=== PATIENT | male | born 1990 | race Caucasian/White ===

== ENCOUNTER 2017-05-26 23:22 | Emergency (ER) | payer BC ==
[2017-05-26] MEDS ORDERED: 0.9 % SODIUM CHLORIDE 1000ML 1,000 ML IV SCH (23:45)
[2017-05-26] MEDS ORDERED: MORPHINE SULFATE 5 MG/ML PFS IVP ONE (23:54)
[2017-05-26] MEDS ORDERED: ONDANSETRON HCL IV 4 MG/2 ML VIAL IVP ONE (23:54)
--- NOTE | 2017-05-27 | Emergency Department Record ---
History of Present Illness - General Chief complaint: Abscess Stated complaint: ABSCESS Time Seen by Provider: 05/26/17 23:49 Source: Patient Mode of Arrival: Ambulatory Limitations: No limitations - History of Present Illness Initial comments: 26 yo male presents to ED with a CC swelling and pain to the right buttock x 1 day. Patient reports swelling, redness, and drainage from the area. Patient reports history of cutaneous abscesses previously, however previous episodes have not been as large. Patient denies health problems at his baseline. MD complaint: Abscess/boil Onset/Timin -: Days(s) Patient Tetanus UTD (within 5 yrs): Yes Location: Buttocks Severity: Moderate Severity scale (1-10): 6 Quality: Aching Consistency: Constant Improves with: None Worsens with: None Context: None - Related Data Home Medications Medication Instructions Recorded Confirmed Last Taken Venlafaxine HCl [Venlafaxine HCl 37.5 mg PO BID 05/26/17 05/26/17 Unknown ER] Previous Rx's Medication Instructions Recorded Clindamycin HCl 300 mg PO Q6H #40 capsule 05/27/17 Hydrocodone/Acetaminophen [[place] 1 each PO Q6H PRN #15 tablet 05/27/17 5-325 Tablet] Allergies Allergy/AdvReac Type Severity Reaction Status Date / Time No Known Drug Allergies Allergy Verified 05/26/17 23:39 Travel Screening - Travel/Exposure Within Last 30 Days Have you traveled within the last 30 days?: No Review of Systems Constitutional: Denies: Chills, Malaise, Night sweats Eyes: Denies: Eye discharge, Eye pain ENT: Denies: Congestion, Ear pain, Epistaxis Respiratory: Denies: Cough, Dyspnea Cardiovascular: Denies: Chest pain, Dyspnea on exertion Endocrine: Denies: Fatigue, Heat or cold intolerance Gastrointestinal: Denies: Abdominal pain, Nausea, Vomiting Genitourinary: Denies: Incontinence, Retention Musculoskeletal: Denies: Arthralgia, Back pain, Gout, Joint swelling Skin: Reports: Change in color, Other (Swelling, pain, and drainage from the right buttock). Denies: Bruising, Rash Neurological: Denies: Abnormal gait, Confusion, Headache, Seizure Psychiatric: Denies: Anxiety Hematological/Lymphatic: Denies: Anemia, Blood Clots Past Medical History - SOCIAL HISTORY Smoking Status: Never smoker Alcohol Use: None Drug Use: None - RESPIRATORY Hx Respiratory Disorders: No - CARDIOVASCULAR Hx Cardio Disorders: No - NEURO Hx Neuro Disorders: No - GI Hx GI Disorders: No - Hx Genitourinary Disorders: No - ENDOCRINE Hx Endocrine Disorders: No - MUSCULOSKELETAL Hx Musculoskeletal Disorders: No - PSYCH Hx Psych Problems: No - HEMATOLOGY/ONCOLOGY Hx Hematology/Oncology Disorders: No Family Medical History Any Significant Family History?: No Physical Exam - General General Appearance: Alert, Oriented x3, Cooperative, Mild distress Limitations: No limitations - Head Head exam: Atraumatic, Normocephalic, Normal inspection Head exam detail: negative: Abrasion, Contusion, Doherty's sign, General tenderness, Hematoma, Laceration - Eye Eye exam: Normal appearance. negative: Conjunctival injection, Periorbital swelling, Periorbital tenderness, Scleral icterus - ENT Ear exam: negative: Auricular hematoma, Auricular trauma Nasal Exam: negative: Active bleeding, Discharge, Dried blood, Foreign body Mouth exam: negative: Drooling, Laceration, Muffled voice, Tongue elevation - Neck Neck exam: Normal inspection. negative: Meningismus, Tenderness - Respiratory Respiratory exam: Normal lung sounds bilaterally. negative: Rales, Respiratory distress, Rhonchi, Stridor - Cardiovascular Cardiovascular Exam: Regular rate, Normal rhythm, Normal heart sounds - GI/Abdominal GI/Abdominal exam: Soft. negative: Rebound, Rigid, Tenderness - Rectal Rectal exam: Deferred - exam: Deferred - Extremities Extremities exam: Normal inspection. negative: Calf tenderness, Pedal edema, Tenderness - Back Back exam: Reports: Normal inspection. Denies: CVA tenderness (R), CVA tenderness (L) - Neurological Neurological exam: Alert, Normal gait, Oriented X3 - Psychiatric Psychiatric exam: Normal affect, Normal mood - Skin Skin exam: Erythema. negative: Abrasion Type of lesion: Abscess (approximately 9 cm in diameter area of erythema and induration is present to the right buttock). negative: abrasion Course Vital Signs 05/26/17 23:37 Temperature 99.4 F Pulse Rate 102 H Respiratory 18 Rate Blood Pressure 150/87 Pulse Ox 98 - Reevaluation(s) Reevaluation #1: 05/27/17 01:26 Labs reviewed and are grossly unremarkable for an acute process. CT Pelvis: Skin thickening c/w cellulitis, no fluid collection or drainable abscess present. Clindamycin is almost completed infusing, and the patient appears stable for discharge on Clindamycin and [place] with warm soaks twice daily and instructions to return to ED for any worsening of his symptoms. Patient agrees with the plan of care as discussed. Medical Decision Making - Lab Data Result diagrams: 05/26/17 00:37 05/26/17 00:37 Disposition Disposition: Discharge Clinical Impression: Cellulitis of buttock, right Disposition: Home, Self-Care Condition: (2) Stable Instructions: Cellulitis (ED) Additional Instructions: Return to ED if your symptoms worsen or if you have any concerns. Clindamycin and [place] as directed. Follow-up with your family doctor in 1-3 days as directed. Prescriptions: Clindamycin HCl 300 mg PO Q6H #40 capsule Hydrocodone/Acetaminophen [[place] 5-325 Tablet] 1 each PO Q6H PRN #15 tablet PRN Reason: Pain - Moderate (5-7) Forms: Patient Portal Access Time of Disposition: 01:33 Quality - Quality Measures Quality Measures: N/A - Blood Pressure Screening Does Patient Have Any of the Following: No Blood Pressure Classification: Pre-Hypertensive BP Reading Systolic Measurement: 144 Diastolic Measurement: 80 Screening for High Blood Pressure: < Pre-Hypertensive BP, F/U Documented > [ G8950] Pre-Hypertensive Follow-up Interventions: Referral to alternative/primary care provider.
[2017-05-27 00:55] LABS: BASO % 0.2 % (0-6); EOS % 0.7 % (0-6); GRAN % 75.3 % (47-80); HEMATOCRIT 40.3 % (42.0-52.0); HEMOGLOBIN 13.9 gm/dl (14.0-18.0); LYMPH % 14.9 % (16-45); MEAN CELL VOLUME 84.3 fl (81-97); MEAN CORPUSCULAR HGB CONC 34.5 g/dl (32-36); MEAN PLATELET VOLUME 11.2 fl (7.4-10.4); MONO % 8.9 % (0-9); PLATELET COUNT 242 K/uL (130-400); RED BLOOD COUNT 4.78 M/uL (4.40-5.70); RED CELL DISTRIBUTION WIDTH 12.9 % (11.5-14.5); WHITE BLOOD COUNT W/O DIFF 10.4 K/uL (4.2-12.2)
[2017-05-27] MEDS ORDERED: CLINDAMYCIN 600MG/50ML PREMIX 600 MG/50 ML BAG IVPB ONE (01:03)
[2017-05-27 01:06] LABS: ALB/GLOB RATIO 1.4 (1.1-1.8); ALBUMIN 4.4 g/dL (4.0-5.0); ALKALINE PHOSPHATASE 63 U/L (40-129); ALT/SGPT 25 U/L (<41); AST/SGOT 18 U/L (10.0-50.0); BLOOD UREA NITROGEN 14 mg/dL (6-20); CREATININE 1.2 mg/dL (0.7-1.2); EST GLOMERULAR FILTRATION RATE > 60 mL/min; GLUCOSE,RANDOM 81 mg/dL (74-109); TOTAL PROTEIN 7.5 g/dL (6.6-8.7)
[2017-05-27] MEDS ORDERED: HYDROCODONE/APAP 5/325MG TABLET PO ONE (01:37)
--- NOTE | 2017-05-28 10:04 | CT SCAN REPORT ---
EXAM: CT SCAN OF THE PELVIS WITH CONTRAST HISTORY: RIGHT BUTTOCK INFECTION/ABSCESS. TECHNIQUE: Standard CT imaging of the pelvis was performed with contrast. 80 ml of Omnipaque 300 were administered. Comparison: None. FINDINGS: There is skin thickening and subcutaneous edema within the right gluteal region. This is confined to the skin and subcutaneous fat. There is no defined fluid collection or abscess. There is no soft tissue air. The appearance is consistent with cellulitis. The visualized large and small bowel loops are normal. The appendix is unremarkable. The urinary bladder and prostate gland are normal. There are no acute osseous abnormalities. IMPRESSION: LOCALIZED SKIN THICKENING AND SUBCUTANEOUS EDEMA WITHIN THE RIGHT GLUTEAL REGION CONSISTENT WITH CELLULITIS. THERE IS NO DEFINED ABSCESS OR SOFT TISSUE AIR. JOB NUMBER: [id number] MTDD
== END 2017-05-27 02:08 | disposition home or self-care (01) ==
LOC: ER 23:22
DX: L03.317 Cellulitis of buttock (principal)
CPT/HCPCS: 99284 ×2; 96374; 96375; 85025; 80053; 72193; Q9967; J2405; J2270; J7030

== ENCOUNTER 2017-05-28 05:54 | Observation (INO) | payer BC ==
[2017-05-28] MEDS ORDERED: SODIUM CHLORIDE 0.9% 500 ML IV ONE ×2 (06:21→07:02)
[2017-05-28] MEDS ORDERED: CLINDAMYCIN 600MG/50ML PREMIX 600 MG/50 ML BAG IVPB ONE (06:22)
[2017-05-28] MEDS ORDERED: CEFTRIAXONE SODIUM 1 GM in 0.9 % SODIUM CHLORIDE 100ML 100 ML IVPB ONE (06:28)
--- NOTE | 2017-05-28 06:28 | Emergency Department Record ---
History of Present Illness - General Chief complaint: Abscess Stated complaint: ABSCESS Time Seen by Provider: 05/28/17 06:12 Source: Patient Mode of Arrival: Ambulatory Limitations: No limitations - History of Present Illness Initial comments: The patient was diagnosed with R buttock cellulitis about 30 hours ago here in the ER. He had a CT performed that did not demonstrate any abscess or drainable fluid. Now this AM the area became suddenly more painful and then started draining. Since the pain has improved. The patient is mildly nauseated and has had a low grade fever. He denies any AP, CP, or SOB. MD complaint: Abscess/boil Onset/Timin -: Hour(s) Hx Tetanus Toxoid Vaccination: Yes Year of Tetanus Vaccination: 2012 Patient Tetanus UTD (within 5 yrs): No Location: Buttocks Severity: Moderate Quality: Sharp Consistency: Intermittent Improves with: Rest Worsens with: Movement Context: Other Associated symptoms: Denies other symptoms Treatments Prior to Arrival: Attempted to drain pus at home, Bandages, Antibiotic, Other Treatment Prior to Arrival Comment:: [place] - Related Data Previous Rx's Medication Instructions Recorded Clindamycin HCl 300 mg PO Q6H #40 capsule 05/27/17 Hydrocodone/Acetaminophen [[place] 1 each PO Q6H PRN #15 tablet 05/27/17 5-325 Tablet] Allergies Allergy/AdvReac Type Severity Reaction Status Date / Time No Known Drug Allergies Allergy Verified 05/26/17 23:39 Travel Screening - Travel/Exposure Within Last 30 Days Have you traveled within the last 30 days?: No - Travel Symptoms Symptom Screening: None Review of Systems Constitutional: Reports: Chills, Fever, Malaise Eyes: Denies: Eye discharge ENT: Denies: Congestion Respiratory: Denies: Cough Past Medical History - SOCIAL HISTORY Smoking Status: Never smoker Alcohol Use: None Drug Use: None - RESPIRATORY Hx Respiratory Disorders: No - CARDIOVASCULAR Hx Cardio Disorders: No - NEURO Hx Neuro Disorders: No - GI Hx GI Disorders: No - Hx Genitourinary Disorders: No - ENDOCRINE Hx Endocrine Disorders: No - MUSCULOSKELETAL Hx Musculoskeletal Disorders: No - PSYCH Hx Psych Problems: No - HEMATOLOGY/ONCOLOGY Hx Hematology/Oncology Disorders: No Family Medical History Any Significant Family History?: Yes Hx HTN: Mother, Grandparents Physical Exam - General General Appearance: Alert, Oriented x3, Cooperative, No acute distress - Head Head exam: Atraumatic, Normocephalic, Normal inspection - Eye Eye exam: Normal appearance, PERRL - Neck Neck exam: Normal inspection, Full ROM. negative: Tenderness - Respiratory Respiratory exam: Normal lung sounds bilaterally. negative: Respiratory distress - Cardiovascular Cardiovascular Exam: Regular rate, Normal rhythm, Normal heart sounds - GI/Abdominal GI/Abdominal exam: Soft, Normal bowel sounds. negative: Tenderness - Rectal Rectal exam: Other (The R buttock is erythematous and very indurated. There is a draining lesion in the center. The are is very tender and warm.) - Extremities Image of Full Body: 1 - Area of erythema and induration. Course Vital Signs 05/28/17 05:59 Temperature 99.9 F H Pulse Rate [ 107 H Pulse Ox Probe] Respiratory 16 Rate Blood Pressure 127/74 [Left Arm] Pulse Ox 97 - Reevaluation(s) Reevaluation #1: Due to the size of the erythema and induration I do not feel that I can I and D the lesion here in the ER. I did discuss the case with Dr. Camacho and he will consult on the patient this AM and possibly take him to surgery. He would like the patient NPO and would like another CT performed. The patient last had a meal at 10pm last night and did have a small amount of fluid and popcorn at 2am today. The patient also took a dose of Clindamycin about 2 hours ago. 05/28/17 06:32 05/28/17 06:34 Reevaluation #2: The patient's care will be turned over to Dr. Hamm at 7am due to shift change. 05/28/17 06:51 Medical Decision Making - Lab Data Result diagrams: 05/28/17 06:30 05/28/17 06:30 Disposition Forms: Patient Portal Access Quality - Quality Measures Quality Measures: N/A - Blood Pressure Screening View Details: Yes Does Patient Have Any of the Following: No Blood Pressure Classification: Pre-Hypertensive BP Reading Systolic Measurement: 127 Diastolic Measurement: 74 Screening for High Blood Pressure: < Pre-Hypertensive BP, F/U Documented > [ G8950] Pre-Hypertensive Follow-up Interventions: Referral to alternative/primary care provider.
[2017-05-28] MEDS ORDERED: KETOROLAC 30 MG/ML VIAL IVP ONE (06:29)
[2017-05-28 06:38] LABS: BASO % 0.2 % (0-6); EOS % 2.2 % (0-6); GRAN % 70.3 % (47-80); HEMATOCRIT 39.2 % (42.0-52.0); HEMOGLOBIN 13.7 gm/dl (14.0-18.0); LYMPH % 16.9 % (16-45); MEAN CELL VOLUME 84.7 fl (81-97); MEAN CORPUSCULAR HEMOGLOBIN 29.5 pg (27-33); MEAN CORPUSCULAR HGB CONC 34.9 g/dl (32-36); MONO % 10.4 % (0-9); PLATELET COUNT 227 K/uL (130-400); RED BLOOD COUNT 4.63 M/uL (4.40-5.70); RED CELL DISTRIBUTION WIDTH 12.7 % (11.5-14.5)
[2017-05-28 06:50] LABS: BLOOD UREA NITROGEN 16 mg/dL (6-20); CREATININE 1.1 mg/dL (0.7-1.2); EST GLOMERULAR FILTRATION RATE > 60 mL/min; GLUCOSE,RANDOM 103 mg/dL (74-109)
--- NOTE | 2017-05-28 07:37 | Emergency Department Record ---
History of Present Illness - General Chief complaint: Abscess Stated complaint: ABSCESS Time Seen by Provider: 05/28/17 06:12 Source: Patient Mode of Arrival: Ambulatory Limitations: No limitations - History of Present Illness MD complaint: Abscess/boil Onset/Timin -: Hour(s) Hx Tetanus Toxoid Vaccination: Yes Year of Tetanus Vaccination: 2013 Patient Tetanus UTD (within 5 yrs): No Location: Buttocks Severity: Moderate Quality: Sharp Consistency: Intermittent Improves with: Rest Worsens with: Movement Context: Other Associated symptoms: Denies other symptoms Treatments Prior to Arrival: Attempted to drain pus at home, Bandages, Antibiotic, Other Treatment Prior to Arrival Comment:: [place] - Related Data Previous Rx's Medication Instructions Recorded Clindamycin HCl 300 mg PO Q6H #40 capsule 05/27/17 Hydrocodone/Acetaminophen [[place] 1 each PO Q6H PRN #15 tablet 05/27/17 5-325 Tablet] Allergies Allergy/AdvReac Type Severity Reaction Status Date / Time No Known Drug Allergies Allergy Verified 05/26/17 23:39 Travel Screening - Travel/Exposure Within Last 30 Days Have you traveled within the last 30 days?: No - Travel Symptoms Symptom Screening: None Review of Systems Constitutional: Reports: Chills, Fever, Malaise Eyes: Denies: Eye discharge ENT: Denies: Congestion Respiratory: Denies: Cough Past Medical History - SOCIAL HISTORY Smoking Status: Never smoker Alcohol Use: None Drug Use: None - RESPIRATORY Hx Respiratory Disorders: No - CARDIOVASCULAR Hx Cardio Disorders: No - NEURO Hx Neuro Disorders: No - GI Hx GI Disorders: No - Hx Genitourinary Disorders: No - ENDOCRINE Hx Endocrine Disorders: No - MUSCULOSKELETAL Hx Musculoskeletal Disorders: No - PSYCH Hx Psych Problems: No - HEMATOLOGY/ONCOLOGY Hx Hematology/Oncology Disorders: No Family Medical History Any Significant Family History?: Yes Hx HTN: Mother, Grandparents Physical Exam - General Limitations: No limitations Course Vital Signs 05/28/17 05/28/17 05:59 07:26 Temperature 99.9 F H 99.7 F H Pulse Rate [ 107 H 80 Pulse Ox Probe] Respiratory 16 20 Rate Blood Pressure 127/74 109/51 [Left Arm] Pulse Ox 97 99 - Reevaluation(s) Reevaluation #1: The case was signed out at 7am at the bedside with Dr Hardin The patient was examined The CT report from [facility] was reviewed. Progressive cellulitis of the right buttocks noted. Given the drainage and increased size CT was performed, general surgery was consulted and plans exploration in the OR. Jesse Hernandez PAC. for admission to the hospital following I and D in the OR. 05/28/17 07:29 Medical Decision Making - Lab Data Result diagrams: 05/28/17 06:30 05/28/17 06:30 Lab Results 05/28/17 05/28/17 Range/Units 06:30 06:30 WBC 10.0 (4.2-12.2) K/uL RBC 4.63 (4.40-5.70) M/uL Hgb 13.7 L (14.0-18.0) gm/dl Hct 39.2 L (42.0-52.0) % MCV 84.7 (81-97) fl MCH 29.5 (27-33) pg MCHC 34.9 (32-36) g/dl RDW 12.7 (11.5-14.5) % Plt Count 227 (130-400) K/uL MPV 11.0 H (7.4-10.4) fl Gran % 70.3 (47-80) % Lymphocytes % 16.9 (16-45) % Monocytes % 10.4 H (0-9) % Eosinophils % 2.2 (0-6) % Basophils % 0.2 (0-6) % Sodium 138 (136-145) mmol/L Potassium 4.9 H (3.4-4.5) mmol/L Chloride 101 (98-107) mmol/L Carbon Dioxide 25.0 (22-29) mmol/L Anion Gap 12.0 (7-16) BUN 16 (6-20) mg/dL Creatinine 1.1 (0.7-1.2) mg/dL Estimated GFR > 60 mL/min Random Glucose 103 (74-109) mg/dL Calcium 8.7 (8.6-10.0) mg/dL Disposition Disposition: Admit Clinical Impression: Cellulitis of buttock, right Disposition: Still a Patient at [facility] Decision to Admit: Admit from ER Decision to Admit Date: 05/28/17 Decision to Admit Time: 07:29 Condition: (2) Stable Forms: Patient Portal Access Time of Disposition: 07:29 Quality - Quality Measures Quality Measures: N/A - Blood Pressure Screening Does Patient Have Any of the Following: No Blood Pressure Classification: Normal BP Reading Systolic Measurement: 109 Diastolic Measurement: 51 Screening for High Blood Pressure: < Normal BP, F/U Not Required > [G8783]
[2017-05-28] MEDS ORDERED: HYDROMORPHONE HCL 1 MG/ML CPJ IVP PRN (12:21)
[2017-05-28] MEDS ORDERED: HYDROMORPHONE HCL 2 MG/ML VIAL IVP PRN (12:21)
[2017-05-28] MEDS ORDERED: HYDROCODONE/APAP 5/325MG TABLET PO PRN ×2 (12:21)
[2017-05-28] MEDS: VANCOMYCIN HCL 1,000 MG in 0.9 % SODIUM CHLORIDE 250ML 250 ML IVPB SCH (12:45)
[2017-05-28] MEDS ORDERED: TMP/SMZ 160MG/800MG TAB PO SCH (13:42)
[2017-05-28] MEDS ORDERED: CEFAZOLIN 1 Gram 1 GM/50 ML BAG IVPB ONE (13:42)
[2017-05-28] MEDS ORDERED: 0.9 % SODIUM CHLORIDE 1000ML 1,000 ML IV PRN (13:42)
[2017-05-28] MEDS ORDERED: ONDANSETRON HCL IV 4 MG/2 ML VIAL IVP PRN (13:42)
[2017-05-28] MEDS ORDERED: ACETAMINOPHEN 500 MG TABLET PO PRN (13:42)
[2017-05-28] MEDS ORDERED: MORPHINE SULFATE 5 MG/ML PFS IVP PRN (13:42)
[2017-05-28] MEDS: CLINDAMYCIN 600MG/50ML PREMIX 600 MG/50 ML BAG IVPB SCH ×2 (14:03→21:00)
--- NOTE | 2017-05-28 14:25 | CT SCAN REPORT ---
EXAM: CT OF THE PELVIS WITHOUT CONTRAST HISTORY: RIGHT BUTTOCK INFECTION, POSSIBLE ABSCESS. TECHNIQUE: Axial CT scan of the pelvis was performed without oral or IV contrast. A preliminary report was provided by [facility]. Comparison: CT of the abdomen and pelvis 05/27/17. FINDINGS: On the prior examination note was made of some skin thickening with underlying hazy increased density in the subcutaneous tissues in the right mid buttock region. Presumably this represents acute cellulitis. Similar findings are seen today with probably overall slight progression in the subcutaneous changes. There is one small area of slight coalescence measuring only about 9 mm in size which is probably just some of this additional subcutaneous cellulitis with no definite discreet abscess identified at this point. Elsewhere the pelvic CT continues to appear essentially negative. The appendix is visualized and appears negative with no appendicitis evident. No free intraperitoneal air or free intraperitoneal fluid evident. The skeletal structures appear unremarkable. IMPRESSION: FINDINGS PRESUMABLY REPRESENTING CELLULITIS IN THE RIGHT MID BUTTOCK REGION WITH PROBABLY VERY MINIMAL PROGRESSION IN THE SUBCUTANEOUS CHANGES COMPARED WITH 05/27/17. JOB NUMBER: [id number] [facility]
--- NOTE | 2017-05-28 15:11 | History and Physical Report ---
DATE: 05/28/2017 CHIEF COMPLAINT: Right gluteal abscess. HISTORY OF CHIEF COMPLAINT: The patient is a 26-year-old male who about 5 days ago noticed a bump on his right gluteal region. He states that this got worse and therefore he was seen in [place] ER on . A CT scan at that time did not show any obvious abscess. Did have some mild cellulitis. He was sent home on Cleocin. However, on Sunday late the pain got worse and therefore he was seen back in the ER. Here, the patient did have a mildly elevated temperature. Laboratory values were all grossly normal. A repeat CT scan did show worsening cellulitis. On exam, he had a black eschar with some drainage and a fluctuant region in the middle. PAST MEDICAL HISTORY: Significant for hypertension. PAST SURGICAL HISTORY: Denies. CURRENT MEDICATIONS: 1. Cleocin. 2. Antihypertensive but he cannot recall the name. ALLERGIES: He has no known medical allergies. SOCIAL HISTORY: He denies any tobacco or alcohol usage. PHYSICAL EXAMINATION: VITAL SIGNS: Height 5 feet 7 inches, weight 300 pounds. He is currently afebrile and his vital signs are stable. HEART: Regular. LUNGS: Clear. ABDOMEN: Soft. There is a 20-25 cm region of cellulitis on his right gluteal region. There is a center portion of about 2 cm of a black eschar. PLAN: We will take him to the OR for debridement and possible drainage. This will be irrigated and packed and he will be admitted for IV antibiotics. JULIEN
[2017-05-28] MEDS ORDERED: ACETAMINOPHEN 1,000 MG/100 ML BTL IV ONE (15:53)
[2017-05-28] MEDS ORDERED: BUPIVACAINE 0.25% W/EPI MPF 30ML VIAL IVP ONE (15:53)
[2017-05-28] MEDS ORDERED: PROPOFOL 10 MG/ML VIAL IV ONE (16:16)
[2017-05-28] MEDS ORDERED: LIDOCAINE 2% MDV (20MG/ML) 20ML VIAL IV ONE (16:16)
[2017-05-28] MEDS ORDERED: FENTANYL PF 100MCG/2ML VIAL IV ONE (16:16)
--- NOTE | 2017-05-28 21:07 | Consult ---
Consult Order Detail - Reason for Consult Consult Date: 05/28/17 - Chief Complaint Chief Complaint: ABSCESS HPI Consult - History of Present Illness Admitting Diagnosis: Cellulitis History of Present Illness: 26yo male with CC of pain near rectum. He has history of htn and significant family history of DM, CAD, CVA. Patient presented to the ED on sunday with similar complaints. Found to have area of dominic anal cellulitis. Initial Ct scan did not show abscess. he was started on clindamycin and discharged home. He returned last night with worsening pain. cellulitis worsened on repeat CT imaging. Dr. Camacho, general surgery, was consulted from the ED. Patient was taken to OR today and underwent debridement of the area. cultures were obtained and patient was started on IV clinda and vanc. 05/28/17- Patient is recovering well. He says the area already feels better. He says he has never been tested for DM previously. he denies frequent urination, thirst or weight loss. He had previously been on lisinopril for htn but his BP had improved so much that his pcp discontinued the medication. ROS Constitutional: Reports: Chills, Fever, Malaise Eyes: Denies: Eye discharge - ENT ENT: Denies: Congestion - Respiratory Respiratory: Denies: Cough Past Medical History - SOCIAL HISTORY Smoking Status: Never smoker - RESPIRATORY Hx Respiratory Disorders: No Hx Sleep Apnea: No (pt states he needs sleep study) - CARDIOVASCULAR Hx Cardio Disorders: No - NEURO Hx Neuro Disorders: No - GI Hx GI Disorders: No - Hx Genitourinary Disorders: No - ENDOCRINE Hx Endocrine Disorders: No Hx Diabetes: No Hx Thyroid Disease: No - MUSCULOSKELETAL Hx Musculoskeletal Disorders: No Comment:: previous collar bone and foot fx - PSYCH Hx Psych Problems: No - HEMATOLOGY/ONCOLOGY Hx Hematology/Oncology Disorders: No Family Medical History Any Significant Family History?: Yes Hx Heart Disease: Mother Hx HTN: Mother, Grandparents Hx Resp Disorders: Mother H&P Meds - Home Medications and Allergies Previous Rx's Medication Instructions Recorded Clindamycin HCl 300 mg PO Q6H #40 capsule 05/27/17 Hydrocodone/Acetaminophen [[place] 1 each PO Q6H PRN #15 tablet 05/27/17 5-325 Tablet] Allergies Allergy/AdvReac Type Severity Reaction Status Date / Time Sulfa (Sulfonamide Allergy RASH Verified 05/28/17 10:53 Antibiotics) Physical Exam - Vital Signs Vital Signs: Vital Signs - Last 24 Hrs Temp Pulse Resp BP Pulse Ox 05/28/17 17:43 98.6 F 60 16 123/64 96 05/28/17 14:42 63 16 05/28/17 13:00 98.5 F 63 16 108/62 98 05/28/17 12:05 98.6 F 66 16 129/70 97 - General General Appearance: Alert, Oriented x3, Cooperative, No acute distress Limitations: No limitations - Head Head exam: Atraumatic, Normocephalic, Normal inspection - Eye Eye exam: Normal appearance, PERRL - Neck Neck exam: Normal inspection, Full ROM. negative: Tenderness - Respiratory Respiratory exam: Normal lung sounds bilaterally. negative: Respiratory distress - Cardiovascular Cardiovascular Exam: Regular rate, Normal rhythm, Normal heart sounds - GI/Abdominal GI/Abdominal exam: Soft, Normal bowel sounds. negative: Tenderness - Rectal Rectal exam: Other (wound is covered with ABD pad and there is minimal drainage currently ) Results - Labs Result Diagrams: 05/28/17 06:30 05/28/17 06:30 Assessment and Plan - Assessment and Plan (1) Cellulitis of buttock, right Current Visit: Yes Status: Acute Base Code: L03.317 - CELLULITIS OF BUTTOCK Comment: 05/28/17- continue surgery's recommendations -IV clinda and vanc -wound packing and dressing changes (2) HTN (hypertension) Current Visit: Yes Status: Acute Qualifiers: Hypertension type: essential hypertension Qualified Code(s): I10 - Essential (primary) hypertension Base Code: I10 - ESSENTIAL (PRIMARY) HYPERTENSION Comment: 05/28/17- BP well controlled currently without medication -continue to monitor q8H (3) BMI 45.0-49.9, adult Current Visit: Yes Status: Acute Base Code: Z68.42 - BODY MASS INDEX (BMI) 45.0-49.9, ADULT Comment: 05/28/17- morbid obesity with strong family history of DM, CAD, ASCVD. -Hgb A1C ordered -counseled on weight loss x5 minutes
[2017-05-29] MEDS: VANCOMYCIN HCL 1,000 MG in 0.9 % SODIUM CHLORIDE 250ML 250 ML IVPB SCH (00:41)
[2017-05-29] MEDS: CLINDAMYCIN 600MG/50ML PREMIX 600 MG/50 ML BAG IVPB SCH (05:33)
[2017-05-29 06:43] LABS: BLOOD UREA NITROGEN 8 mg/dL (6-20); CREATININE 0.9 mg/dL (0.7-1.2); EST GLOMERULAR FILTRATION RATE > 60 mL/min; GLUCOSE,RANDOM 90 mg/dL (74-109)
--- NOTE | 2017-05-30 12:40 | Operative Note ---
DATE OF SURGERY: 05/28/2017 Surgeon: Jordan Camacho DO PREOPERATIVE DIAGNOSIS: Right gluteal abscess. POSTOPERATIVE DIAGNOSIS: Right gluteal abscess. OPERATION: I&D and debridement of right gluteal abscess. Indication: The patient is a 26-year-old male who came in with an enlarging right gluteal cellulitis. He had a fluctuant region with some black eschar. PROCEDURE: Therefore, after consent was signed and questions answered, the patient was taken to the operating room and placed in a supine position. He was then rotated to left lateral position. Propofol anesthesia was titrated to effect. His gluteal region was prepped and draped in the usual fashion. The area around the mass was anesthetized with a total of 8 mL of 0.25% Sensorcaine with epinephrine. A cruciate incision was made with a 15 scalpel blade. This did drain some purulent fluid. The black eschar overlying this was debrided off down to new bleeding pink tissue. The cavity was then irrigated and packed with Iodoform gauze. He was taken to the recovery room in satisfactory condition. FINDINGS AT THE TIME OF SURGERY: Right small gluteal abscess with surrounding black eschar and cellulitis. MTDD
== END 2017-05-29 10:20 | disposition home or self-care (01) ==
LOC: ER 05:54 → SUR 11:24 → OBSVTOIN 11:58 → INTOOBSV 11:58 → MEDSURG 11:58
PROVIDERS: ADMIT Surgery; ATTEND Surgery
DX: L02.31 Cutaneous abscess of buttock (principal); A49.01 Methicillin susceptible Staphylococcus aureus infection, unspecified site
CPT/HCPCS: 10061; 00400; 99285 ×2; 96374; 96375; 85025; 87070; 80048 ×2; 83036; 72192; G0378 ×2; J3370 ×2; J3010; J1170; J7050